=== PATIENT | female | born 1960 | race African-American/Black ===

== ENCOUNTER 2018-11-24 05:02 | Inpatient (IN) ==
[2018-11-15 15:04] LABS: Basophils # 0.1 10*3/uL (0.0-0.2); Basophils % 0.8 % (0.0-0.8); Eosinophils # 0.2 10*3/uL (0.0-0.87); Eosinophils % 2.8 % (0.00-10.9); Hematocrit 38.7 VOL% (35.7-47.0); Hemoglobin 12.2 GM/DL (12.0-16.0); Immature Granulocytes % 0.5 %; Immature Granulocytes Absolute 0.04 #; Lymphocytes # 1.9 10*3/uL (1.4-4.0); Lymphocytes % 23.8 % (21.3-54.2); Mean Corpuscular HGB Conc 31.5 GM/DL (32-36); Mean Corpuscular Hemoglobin 30 PG (27-34); Mean Corpuscular Volume 93.5 FL (87-102); Mean Platelet Volume 10.9 FL (9.6-12.0); Monocytes # 0.6 10*3/uL (0.11-0.8); Monocytes % 7.8 % (1.7-12.7); Neutrophils % 64.3 % (38.7-73.9); Platelet Count 188 T/CUMM (130-400); Red Blood Count 4.14 MC/CUMM (3.8-5.5); Red Cell Distribution Width 13.6 % (9.3-17.3); White Blood Count 7.8 T/CUMM (4-12)
[2018-11-15 15:18] LABS: Osmolality,Calculated 278.4 MOS/KG (273-304); Potassium 3.7 MMOL/L (3.5-5.1)
[2018-11-15 15:34] LABS: Apearance,Urine CLOUDY (Clear); Bacteria,Urine Occasional /HPF (Few); Bilirubin,Urine Negative (Negative); Blood, Urine Negative (Negative); Glucose,Urine (UA) Negative (Negative); Ketones,Urine Negative (Negative); Mucus,Urine Occasional /LPF (Occasional); Nitrite,Urine Negative (Negative); Protein,Urine Negative; RBC,Urine 2 /HPF (0-4); Squamous Epithelial Cell,Urine Occasional /HPF (0-10); Urine Color Yellow (Yellow); Urine Specific Gravity 1.017 (1.001-1.035); WBC,Urine 4 /HPF (0-6)
[2018-11-24] MEDS ORDERED: ALVIMOPAN 12 MG CAPSULE PO ONE (06:30)
[2018-11-24] MEDS ORDERED: cefTRIAXone 1,000 MG in SYRINGE 1 EACH IV ONE (06:30)
[2018-11-24] MEDS: LACTATED RINGERS 1,000 ML IV SCH ×3 (06:51→10:00)
[2018-11-24] MEDS ORDERED: ALVIMOPAN 12 MG CAPSULE ONE (07:05)
[2018-11-24] MEDS ORDERED: cefTRIAXone 1,000 MG VIAL ONE (07:06)
[2018-11-24] MEDS ORDERED: FAMOTIDINE 20 MG TABLET ONE (07:06)
[2018-11-24] MEDS ORDERED: FAMOTIDINE 20 MG TABLET PO ONE (07:09)
[2018-11-24] MEDS ORDERED: LIDOCAINE 1%/EPI INJ 20 ML VIAL ONE (07:40)
[2018-11-24] MEDS ORDERED: BUPIVACAINE 0.5% 50 ML VIAL ONE (07:40)
[2018-11-24] MEDS ORDERED: ceFAZolin 1,000 MG VIAL ONE (07:41)
[2018-11-24] MEDS ORDERED: ROPIVACAINE 0.5% 30 ML VIAL ONE ×3 (09:24→11:33)
[2018-11-24] MEDS ORDERED: HYDROmorphone PCA 30 MG/30 ML SYRINGE IV PRN (11:15)
[2018-11-24] MEDS ORDERED: ONDANSETRON 4 MG/2 ML VIAL IV PRN ×2 (11:55→13:14)
[2018-11-24] MEDS ORDERED: diphenhydrAMINE 50 MG/1 ML VIAL IV PRN (11:55)
[2018-11-24] MEDS ORDERED: ALBUTEROL 2.5 MG/3 ML NEB RESP TX PRN (11:58)
[2018-11-24] MEDS ORDERED: LACTULOSE 20 GM/30 ML UDCUP PO PRN (11:58)
[2018-11-24] MEDS ORDERED: ALBUMIN 5% 12.5 GM/250 ML VIAL IV ONE (12:20)
[2018-11-24] MEDS ORDERED: PROPOFOL 200 MG/20 ML VIAL IV ONE (12:20)
[2018-11-24] MEDS ORDERED: SEVOFLURANE 1 UNIT/15 MINUTE INH ONE (12:20)
[2018-11-24] MEDS ORDERED: MIDAZOLAM 2 MG/2 ML VIAL ONE (12:21)
[2018-11-24] MEDS ORDERED: PHENYLEPHRINE 1 MG/10 ML SYRINGE IV ONE (12:21)
[2018-11-24] MEDS ORDERED: ETOMIDATE 40 MG/20 ML VIAL IV ONE (12:21)
[2018-11-24] MEDS ORDERED: DEXAMETHASONE 10 MG/1 ML VIAL ONE (12:21)
[2018-11-24] MEDS ORDERED: SUFentanil 50 MCG/ML AMP ONE (12:21)
[2018-11-24] MEDS ORDERED: GLYCOPYRROLATE 0.4 MG/2 ML VIAL ONE (12:21)
[2018-11-24] MEDS ORDERED: NEOSTIGMINE 10 MG/10 ML VIAL ONE (12:22)
[2018-11-24] MEDS ORDERED: LACTATED RINGERS 2,000 ML IV ONE (12:22)
[2018-11-24] MEDS ORDERED: SUCCINYLCHOLINE 200 MG/10 ML VIAL ONE (12:22)
[2018-11-24] MEDS ORDERED: ROCURONIUM 100 MG/10 ML VIAL IV ONE (12:22)
[2018-11-24 12:35] LABS: Apearance,Urine Slightly Hazy (Clear); Bacteria,Urine Few /HPF (Few); Bilirubin,Urine Negative (Negative); Blood, Urine Negative (Negative); Glucose,Urine (UA) Negative (Negative); Ketones,Urine Negative (Negative); Mucus,Urine Occasional /LPF (Occasional); Nitrite,Urine Negative (Negative); Protein,Urine Negative; Squamous Epithelial Cell,Urine Occasional /HPF (0-10); Urine Color Yellow (Yellow); Urine Specific Gravity 1.016 (1.001-1.035); WBC,Urine 1 /HPF (0-6)
[2018-11-24] MEDS ORDERED: HYDROmorphone 2 MG/1 ML VIAL ONE (12:40)
[2018-11-24] MEDS ORDERED: HYDROmorphone 2 MG/1 ML VIAL IV PRN (13:14)
[2018-11-24] MEDS: SODIUM CHLORIDE 0.9% 1,000 ML IV SCH (14:23)
[2018-11-24] MEDS: ALVIMOPAN 12 MG CAPSULE PO SCH (21:35)
[2018-11-24] MEDS: CARVEDILOL 25 MG TABLET PO SCH (21:35)
[2018-11-25] MEDS: SODIUM CHLORIDE 0.9% 1,000 ML IV SCH (00:37)
[2018-11-25 05:29] LABS: Calcium 8.3 MG/DL (8.5-10.1); Osmolality,Calculated 279.3 MOS/KG (273-304); Potassium 4.6 MMOL/L (3.5-5.1)
[2018-11-25 06:18] LABS: Basophils % 0.4 % (0.0-0.8); Eosinophils % 0.2 % (0.00-10.9); Hematocrit 36.6 VOL% (35.7-47.0); Hemoglobin 11.5 GM/DL (12.0-16.0); Immature Granulocytes % 0.4 %; Immature Granulocytes Absolute 0.04 #; Lymphocytes # 1.5 10*3/uL (1.4-4.0); Lymphocytes % 16.4 % (21.3-54.2); Mean Corpuscular HGB Conc 31.4 GM/DL (32-36); Mean Corpuscular Hemoglobin 29 PG (27-34); Mean Corpuscular Volume 93.1 FL (87-102); Mean Platelet Volume 11.4 FL (9.6-12.0); Monocytes # 0.6 10*3/uL (0.11-0.8); Monocytes % 6.7 % (1.7-12.7); Neutrophils # 6.9 10*3/uL (1.4-7.4); Neutrophils % 75.9 % (38.7-73.9); Platelet Count 215 T/CUMM (130-400); Red Blood Count 3.93 MC/CUMM (3.8-5.5); Red Cell Distribution Width 13.3 % (9.3-17.3); White Blood Count 9.1 T/CUMM (4-12)
[2018-11-25] MEDS: LACTATED RINGERS 1,000 ML IV SCH (08:33)
[2018-11-25] MEDS: CARVEDILOL 25 MG TABLET PO SCH ×2 (09:47→20:34)
[2018-11-25] MEDS: LOSARTAN/HCTZ 50-12.5 MG TABLET PO SCH (09:48)
[2018-11-25] MEDS: amLODIPine 10 MG TABLET PO SCH (09:48)
[2018-11-25] MEDS: buPROPion XL 150 MG TABLET PO SCH (09:52)
[2018-11-25] MEDS: CHOLECALCIFEROL 1,000 UNIT TABLET PO SCH (09:52)
[2018-11-25] MEDS: ALVIMOPAN 12 MG CAPSULE PO SCH ×2 (09:53→20:32)
[2018-11-25] MEDS: PANTOPRAZOLE 40 MG TABLET PO SCH (09:53)
[2018-11-25] MEDS: CETIRIZINE 10 MG TABLET PO SCH (09:53)
[2018-11-25] MEDS: ALLOPURINOL 300 MG TABLET PO SCH (09:53)
[2018-11-26] MEDS ORDERED: ACETAMINOPHEN 325 MG TABLET PO PRN (08:14)
[2018-11-26] MEDS: ALVIMOPAN 12 MG CAPSULE PO SCH ×2 (08:36→21:45)
[2018-11-26] MEDS: buPROPion XL 150 MG TABLET PO SCH (08:36)
[2018-11-26] MEDS: ALLOPURINOL 300 MG TABLET PO SCH (08:36)
[2018-11-26] MEDS: CHOLECALCIFEROL 1,000 UNIT TABLET PO SCH (08:36)
[2018-11-26] MEDS: LOSARTAN/HCTZ 50-12.5 MG TABLET PO SCH (08:37)
[2018-11-26] MEDS: PANTOPRAZOLE 40 MG TABLET PO SCH (08:37)
[2018-11-26] MEDS: CETIRIZINE 10 MG TABLET PO SCH (08:37)
[2018-11-26] MEDS: amLODIPine 10 MG TABLET PO SCH (08:37)
[2018-11-26] MEDS: CARVEDILOL 25 MG TABLET PO SCH ×2 (08:37→21:45)
[2018-11-26] MEDS: LACTATED RINGERS 1,000 ML IV SCH (08:37)
[2018-11-26] MEDS ORDERED: LACTULOSE 20 GM/30 ML UDCUP PO PRN (19:10)
[2018-11-27] MEDS: CHOLECALCIFEROL 1,000 UNIT TABLET PO SCH (08:55)
[2018-11-27] MEDS: PANTOPRAZOLE 40 MG TABLET PO SCH (08:55)
[2018-11-27] MEDS: CARVEDILOL 25 MG TABLET PO SCH (08:55)
[2018-11-27] MEDS: ALVIMOPAN 12 MG CAPSULE PO SCH (08:55)
[2018-11-27] MEDS: LOSARTAN/HCTZ 50-12.5 MG TABLET PO SCH (08:55)
[2018-11-27] MEDS: buPROPion XL 150 MG TABLET PO SCH (08:55)
[2018-11-27] MEDS: CETIRIZINE 10 MG TABLET PO SCH (08:55)
[2018-11-27] MEDS: ALLOPURINOL 300 MG TABLET PO SCH (08:56)
[2018-11-27] MEDS: LACTATED RINGERS 1,000 ML IV SCH (08:57)
[2018-11-27] MEDS: amLODIPine 10 MG TABLET PO SCH (08:57)
[2018-11-27 12:35] VITALS: BP 115/65
== END 2018-11-27 14:12 | disposition home or self-care (01) | DRG 442 ==
LOC: N.OR 05:02 → N.SDSINP 05:02 → N.5E 11:55
PROVIDERS: ADMIT Urology; ATTEND Urology

== ENCOUNTER 2020-10-29 09:40 | Observation (INO) ==
[2020-10-29] MEDS ORDERED: ASPIRIN 325 MG TABLET PO STA (10:20)
[2020-10-29 10:37] LABS: Basophils % 1.3 % (0.0-0.8); Eosinophils # 0.1 10*3/uL (0.0-0.87); Eosinophils % 2.3 % (0.00-10.9); Hematocrit 37.9 VOL% (35.7-47.0); Hemoglobin 12.5 GM/DL (12.0-16.0); Immature Granulocytes Absolute 0.03 #; Lymphocytes # 0.7 10*3/uL (1.4-4.0); Lymphocytes % 21.6 % (21.3-54.2); Mean Corpuscular Volume 89.6 FL (87-102); Mean Platelet Volume 12.2 FL (9.6-12.0); Monocytes % 13.5 % (1.7-12.7); Neutrophils % 60.3 % (38.7-73.9); Red Blood Count 4.23 MC/CUMM (3.8-5.5); Red Cell Distribution Width 13.9 % (9.3-17.3); White Blood Count 3.1 T/CUMM (4-12)
[2020-10-29 10:40] LABS: Platelet Count 53 T/CUMM (130-400)
[2020-10-29 10:50] LABS: Alanine Aminotransferase 16 U/L (13-56); Albumin 3.8 G/DL (3.4-5.0); Alkaline Phosphatase 136 U/L (45-117); Aspartate Amino Transferase 18 U/L (0-37); Bilirubin,Total < 0.39 MG/DL (0.2-1.0); Blood Urea Nitrogen 16 MG/DL (7-18); Calcium 9.1 MG/DL (8.5-10.1); Estimated Glom Filtration Rate 63 ML/MIN; Glucose 96 MG/DL (74-106); Osmolality,Calculated 279.4 MOS/KG (273-304); Total Protein 7.6 G/DL (6.4-8.3)
[2020-10-29 10:57] LABS: Hypochromasia 1+; Microcytosis 1+; Platelet Estimate Decreased
[2020-10-29 11:26] LABS: Ferritin 64.7 ng/ml (8-252)
[2020-10-29] MEDS ORDERED: GLUCAGON 1 MG VIAL IM PRN (11:54)
[2020-10-29] MEDS ORDERED: DEXTROSE 50% 25 GM/50 ML VIAL IV PRN (11:54)
[2020-10-29] MEDS ORDERED: DOCUSATE SODIUM 100 MG CAPSULE PO PRN (11:54)
[2020-10-29] MEDS ORDERED: ACETAMINOPHEN 325 MG TABLET PO PRN (11:54)
[2020-10-29] MEDS ORDERED: MELATONIN 3 MG TABLET PO PRN (11:59)
[2020-10-29] MEDS: SODIUM CHLORIDE 0.9% 1,000 ML IV SCH (12:20)
[2020-10-29] MEDS: ENOXAPARIN 40 MG/0.4 ML SYRINGE SUBCUT SCH (12:20)
[2020-10-29] MEDS: ASCORBIC ACID 500 MG TABLET PO SCH (21:15)
[2020-10-29] MEDS: MORPHINE 4 MG/1 ML VIAL IV PRN (23:47)
[2020-10-29] MEDS: ONDANSETRON 4 MG/2 ML VIAL IV PRN (23:48)
[2020-10-30] MEDS: MORPHINE 4 MG/1 ML VIAL IV PRN ×2 (03:13→08:18)
[2020-10-30] MEDS: SODIUM CHLORIDE 0.9% 1,000 ML IV SCH ×2 (06:04)
[2020-10-30 06:29] LABS: Alanine Aminotransferase 14 U/L (13-56); Albumin 3.4 G/DL (3.4-5.0); Alkaline Phosphatase 120 U/L (45-117); Aspartate Amino Transferase 12 U/L (0-37); Bilirubin,Total < 0.39 MG/DL (0.2-1.0); Blood Urea Nitrogen 15 MG/DL (7-18); Estimated Glom Filtration Rate 65 ML/MIN; Glucose 94 MG/DL (74-106); HDL Cholesterol 49 MG/DL (40-60); Osmolality,Calculated 273.8 MOS/KG (273-304); Total Protein 7.3 G/DL (6.4-8.3); Triglycerides 105 MG/DL (2-150)
[2020-10-30 06:33] LABS: Ferritin 71.2 ng/ml (8-252)
[2020-10-30 06:40] LABS: Basophils % 0.9 % (0.0-0.8); Eosinophils # 0.1 10*3/uL (0.0-0.87); Eosinophils % 1.5 % (0.00-10.9); Hematocrit 37.1 VOL% (35.7-47.0); Hemoglobin 11.9 GM/DL (12.0-16.0); Immature Granulocytes % 0.6 %; Immature Granulocytes Absolute 0.02 #; Lymphocytes % 29.5 % (21.3-54.2); Mean Corpuscular HGB Conc 32.1 GM/DL (32-36); Mean Corpuscular Volume 91.6 FL (87-102); Neutrophils % 50.5 % (38.7-73.9); Red Blood Count 4.05 MC/CUMM (3.8-5.5); Red Cell Distribution Width 13.9 % (9.3-17.3); White Blood Count 3.3 T/CUMM (4-12)
[2020-10-30 06:44] LABS: Platelet Count 172 T/CUMM (130-400)
[2020-10-30 06:52] LABS: Eosinophils 1 % (0-10); Hypochromasia 1+; Lymphocytes 28 % (20-55); Microcytosis 1+; Platelet Estimate Adequate; Segmented Neutrophils 54 % (50-85); Total Cells Counted 100
[2020-10-30] MEDS: ASCORBIC ACID 500 MG TABLET PO SCH (08:19)
[2020-10-30] MEDS ORDERED: ZINC GLUCONATE 50 MG TABLET PO SCH (09:00)
[2020-10-30] MEDS ORDERED: LOSARTAN 50 MG TABLET PO SCH (09:00)
[2020-10-30] MEDS ORDERED: AZITHROMYCIN 250 MG TABLET PO SCH (09:00)
[2020-10-30] MEDS ORDERED: amLODIPine 10 MG TABLET PO SCH (09:00)
[2020-10-30] MEDS ORDERED: PANTOPRAZOLE 40 MG TABLET PO SCH (09:00)
[2020-10-30] MEDS ORDERED: carvediloL 25 MG TABLET PO SCH (09:00)
[2020-10-30] MEDS ORDERED: CETIRIZINE 10 MG TABLET PO SCH (09:00)
[2020-10-30] MEDS ORDERED: CHOLECALCIFEROL 1,000 UNIT TABLET PO SCH (09:00)
[2020-10-30] MEDS ORDERED: allopurinoL 300 MG TABLET PO SCH (09:00)
[2020-10-30] MEDS ORDERED: DEXAMETHASONE 4 MG/1 ML VIAL IV SCH (09:00)
[2020-10-30] MEDS: ONDANSETRON 4 MG/2 ML VIAL IV PRN (10:32)
[2020-10-30] MEDS: ENOXAPARIN 40 MG/0.4 ML SYRINGE SUBCUT SCH (11:18)
[2020-10-30 16:00] VITALS: BP 141/80
[2020-10-30] MEDS ORDERED: carBAMazepine 200 MG TABLET PO SCH (21:00)
== END 2020-10-30 16:17 | disposition home or self-care (01) ==
LOC: N.ED 09:40 → N.EDINP 09:40 → N.2E 10-30 00:22
PROVIDERS: ADMIT Internal Medicine; ATTEND Internal Medicine